=== PATIENT | female | born 1990 | race Caucasian/White ===

== ENCOUNTER 2023-10-11 01:24 | Emergency (ER) | payer OTHER ==
[~2023-10-11] VITALS: Ht 149.9 cm; Wt 63.5 kg
[2023-10-11 01:48] VITALS: BP 144/89
== END 2023-10-11 03:54 | disposition home or self-care (01) ==
LOC: ER 01:24
DX: F22 Delusional disorders (principal); G47.00 Insomnia, unspecified; Z88.8 Allergy status to other drugs, medicaments and biological substances
CPT/HCPCS: 93005; 93010; 99284-25; A9270